=== PATIENT | female | born 1945 | race Two or more races ===

== ENCOUNTER 2018-07-23 08:47 | Inpatient (IN) | payer SELFPAY ==
[~2018-07-23] VITALS: Ht 160 cm; Wt 59.0 kg
[2018-07-23 10:32] LABS: Basophils # (auto) 0 uL; Basophils % (auto) 0.3 % (0.0-2.0); Eosinophils # (auto) 0.1 uL; Hematocrit 45.4 % (36.0-46.0); Hemoglobin 15.4 g/dL (12.2-16.2); Lymphocytes # (auto) 1.1 uL; Mean Corpuscular Hemoglobin 32.3 pg (28.0-32.0); Mean Corpuscular Volume 95.1 fL (80.0-100.0); Monocytes # (auto) 0.3 uL; Monocytes % (auto) 4.4 % (0.0-12.0); Neutrophils # (auto) 4.3 uL; Neutrophils % (auto) 74.3 % (37.0-80.0); Platelet Count (auto) 290 10^3/uL (140-450); Red Blood Cells 4.77 10^6/uL (4.0-5.20); Red Cell Distribution Width 13.2 % (11.8-14.3); White Blood Cell 5.7 10^3/uL (4.4-10.8)
[2018-07-23 10:58] LABS: Albumin 3.7 g/dL (3.4-5.0); Calcium 8.7 mg/dL (8.5-10.1)
[2018-07-23 11:01] LABS: BUN/Creatinine Ratio 22.6; Bilirubin, Total 0.4 mg/dL (0.2-1.0); Total Protein 6.8 g/dL (6.4-8.2)
[2018-07-23 11:14] LABS: INR 0.96 (0.9-1.15); Partial Thromboplastin Time 24.7 sec (23.78-33.04); Prothrombin Time 10.3 sec (9.27-12.13)
[2018-07-23] MEDS ORDERED: SODIUM CHLORIDE 0.9% 500 ML IV ONE (11:30)
[2018-07-23] MEDS ORDERED: MORPHINE SULF INJ 2 MG/ML SYRINGE 1ML IV PRN (14:00)
[2018-07-23] MEDS ORDERED: ACETAMINOPHEN 500 MG TAB PO PRN (14:00)
[2018-07-23] MEDS ORDERED: NITROGLYCERIN 0.4 MG SL TAB SL PRN (14:00)
[2018-07-23] MEDS ORDERED: HYDROcodone-ACET 5/325MG TAB PO PRN (14:00)
[2018-07-23] MEDS ORDERED: LORazepam 2MG/ML-1ML VIAL IV ONE (14:30)
[2018-07-23] MEDS: MORPHINE SULF INJ 2 MG/ML SYRINGE 1ML IV PRN (16:20)
[2018-07-23] MEDS: SODIUM CHLORIDE 0.9% 1,000 ML IV SCH ×2 (16:20→21:28)
[2018-07-23] MEDS: ONDANSETRON HCL 4 MG/2 ML VIAL IV PRN (16:20)
[2018-07-23 16:47] LABS: Urine Bacteria FEW /hpf (None Seen); Urine Blood Negative /uL (Negative); Urine Specific Gravity 1.013 (1.001-1.035); Urine WBC 12 /hpf (0 - 5)
[2018-07-23] MEDS ORDERED: cefTRIAXone 1GM/50ML D5W 50 ML IV ONE (19:00)
[2018-07-23] MEDS ORDERED: ALPRAZolam 0.25 MG TAB PO PRN (19:00)
--- NOTE | 2018-07-23 21:10 | NUR ---
ADMITTED PATIENT FROM THE ER, AAOX4. SON IS IN THE ROOM. NO DISTRESS NOTED. AFEBRILE. PATIENT IS DIZZY. WITH MILD GENERALIZED WEAKNESS NOTED. COMPLAINED OF HEADACHE. ROUTINE ADMISSION DONE. POCS DISCUSSED WITH PATIENT AND SHOWED UNDERSTANDING. BED KEPT ON LOWEST POSITION. SIDE RAILS UP. CALL LIGHT/TABLE IN REACH. KEPT COMFORTABLE.
[2018-07-23 22:00] VITALS: BP_SYST 127; BP_SYST 145; BP_DIAS 75; BP_DIAS 93
[2018-07-24] MEDS: MORPHINE SULF INJ 2 MG/ML SYRINGE 1ML IV PRN (00:43)
[2018-07-24] MEDS: ONDANSETRON HCL 4 MG/2 ML VIAL IV PRN (00:44)
[2018-07-24 05:30] VITALS: BP 96/50
--- NOTE | 2018-07-24 06:14 | NUR ---
ON BED, ASLEEP. STABLE. NO DISTRESS NOTED. FOR MORE CARE AND MANAGEMENT.
[2018-07-24] MEDS: SODIUM CHLORIDE 0.9% 1,000 ML IV SCH (07:03)
--- NOTE | 2018-07-24 08:00 | NUR ---
Opening Shift Note Assumed care of patient, awake and alert. No S/S of distress/SOB. PT ONLY SPEAKS GREEK. CHILD CARE DEVELOPMENT SPECIALIST PHONE CONNECTED AT BEDSIDE AND USED TO COMMUNICATE WITH PT. PER PT HER PAIN IS A LOT BETTER TODAY THAN IT WAS YESTERDAY. PT REORIENTED TO BED, CALL LIGHT, ROOM, RN, AND PLAN OF CARE. Instructed on POC and to call for assist PRN, will continue to monitor for changes Q1hr and PRN.
[2018-07-24] MEDS ORDERED: cefTRIAXone 1GM/50ML D5W 50 ML IV SCH (09:00)
[2018-07-24 09:15] VITALS: BP 96/59
[2018-07-24 11:30] VITALS: BP 123/74
--- NOTE | 2018-07-24 11:30 | NUR ---
DR SCOTT AT BEDSIDE. SPOKE TO PT'S SON, NADJA.
--- NOTE | 2018-07-24 11:43 | NUR ---
CHAPERONED DR. SCOTT INTO PTS ROOM
--- NOTE | 2018-07-24 14:47 | NUR ---
Discharge instructions given as ordered TO PT AND PT'S SON, NADJA. Encourage to follow up with PMD as instructed. All questions and concerns addressed. Patient verbalized understanding. Medication reconciliation form completed and copy given to patient. Home medications held in Pharmacy returned to patient, and needed vaccines given. IV removed with catheter intact, pressure dressing applied. Telemetry unit returned to ICU. Patient taken to vehicle via wheelchair with all personal belongings, accompanied by staff and family member. No distress noted at time of departure. [facility] WRITTEN ON THE DISCHARGE PAPER.
== END 2018-07-24 15:00 | disposition home or self-care (01) | DRG 690 ==
LOC: ER 08:47 → TELE 14:00 → TELE-WESTW 21:01
PROVIDERS: ADMIT Nurse Practitioner Acute Care; ATTEND Family Medicine
DX: N39.0 Urinary tract infection, site not specified (principal); J01.10 Acute frontal sinusitis, unspecified; R51 Headache; F17.210 Nicotine dependence, cigarettes, uncomplicated; F41.9 Anxiety disorder, unspecified; F32.9 Major depressive disorder, single episode, unspecified
CPT/HCPCS: 36415; 70450; 70545; 71045; 80053; 81001; 82550; 84443; 85025; 85610; 85652; 85730; 87086; 93005; 96361; 96365; 96367; G0378; J0696; J2405